=== PATIENT | female | born 1965 | race Caucasian/White ===

== ENCOUNTER 2021-02-06 12:27 | Emergency (ER) | payer OTHER, BC | END 2021-02-06 15:36 | disposition home or self-care (01) | LOC: ER1 12:27 | DX: S06.0X0A Concussion without loss of consciousness, initial encounter (principal); S02.2XXA Fracture of nasal bones, initial encounter for closed fracture; W01.0XXA Fall on same level from slipping, tripping and stumbling without subsequent striking against object, initial encounter | CPT/HCPCS: 70450; 70486; 72125; 99284 ==